=== PATIENT | male | born 1990 | race Caucasian/White ===

== ENCOUNTER 2016-03-11 16:30 | Emergency (ER) | payer OTHER ==
[~2016-03-11] VITALS: Ht 188 cm; Wt 67.0 kg
[2016-03-11 16:31] VITALS: BP 140/88; PULSE 91; RESP 12; TEMP 98.2; O2SAT 98
[2016-03-11] MEDS ORDERED: CYCLOBENZAPRINE HCL 10 MG TAB PO ONE (17:15)
[2016-03-11] MEDS ORDERED: busPIRone HCL 10 MG TAB PO ONE (17:15)
[2016-03-11] MEDS ORDERED: IBUPROFEN 800 MG TAB PO ONE (17:15)
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
[2016-03-11] MEDS ORDERED: IBUP800T23 PO (18:21)
[2016-03-11] MEDS ORDERED: CYCL1TAB29 PO (18:21)
== END 2016-03-11 18:35 | disposition home or self-care (01) ==
LOC: NEPB 16:30
DX: S16.1XXA Strain of muscle, fascia and tendon at neck level, initial encounter (principal); M62.838 Other muscle spasm; M54.5 Low back pain; V49.40XA Driver injured in collision with unspecified motor vehicles in traffic accident, initial encounter
CPT/HCPCS: 72125; 72131